=== PATIENT | female | born 1945 | race Hispanic/Latino ===

== ENCOUNTER 2021-08-12 13:23 | Emergency (ER) | payer MEDICARE ==
[2021-08-12 13:41] LABS: #Basophils 0.1 thou/uL (0.0-0.2); #Eosinphils 0.3 thou/uL (0.0-0.7); #Lymphocytes 2.5 thou/uL (1.20-3.40); #Monocytes 0.8 thou/uL (0.11-0.59); #Neutrophils 8.1 thou/uL (1.40-6.50); %Basophils 0.5 % (0.0-1.0); %Eosinophils 2.3 % (0.0-10.0); %Lymphocytes 21.4 % (21.0-51.0); %Monocytes 6.6 % (0.0-10.0); %Neutrophils 69.2 % (42.0-75.0); Hemoglobin 11.3 g/dL (12.0-16.0); Mean Corpuscular HGB CONC 31.7 g/dL (32.0-36.0); Mean Corpuscular Hemoglobin 26.9 pg (27.0-31.0); Mean Corpuscular Volume 84.9 fL (78.0-98.0); Mean Platelet Volume 7.3 fL (7.4-10.4); Platelet Count 378 thou/uL (130-400); RBC Distribution Width 14.9 % (11.5-14.5); Red Blood Cell (RBC) Count 4.19 mill/uL (4.20-5.40); White Blood Cell (WBC) Count 11.6 thou/uL (4.8-10.8)
[2021-08-12] MEDS ORDERED: Aspirin Chewable 81 MG TAB ONE (13:45)
[2021-08-12] MEDS ORDERED: Sodium Chloride 0.9% 1,000 ML ONE (13:53)
[2021-08-12 14:17] LABS: ALT (SGPT) 36 U/L (8-55); AST (SGOT) 43 U/L (5-34); Albumin 4.2 g/dL (3.4-4.8); Alkaline Phosphatase 67 U/L (40-110); Anion Gap 16 mmol/L (10-20); BUN (Urea Nitrogen) 26 mg/dL (9.8-20.1); Bilirubin, Total 0.2 mg/dL (0.2-1.2); Calc. Creatinine Clearance 0 mL/min (70-130); Calcium 9.2 mg/dL (7.8-10.44); Carbon Dioxide 20 mmol/L (23-31); Chloride 104 mmol/L (98-107); Globulin 4.1 g/dL (2.4-3.5); Glucose 175 mg/dL (83-110); Lipase 47 U/L (8-78); Magnesium 1.9 mg/dL (1.6-2.6); Potassium 5.1 mmol/L (3.5-5.1); Protein, Total 8.3 g/dL (5.8-8.1); Sodium 135 mmol/L (136-145)
[2021-08-12 14:35] LABS: SARS-CoV-2 NAA Rapid Test Not Detected (NotDetected)
== END 2021-08-12 14:28 | disposition short-term general hospital (02) ==
LOC: NAV ERS 13:23
DX: R00.1 Bradycardia, unspecified (principal); R42 Dizziness and giddiness; E78.5 Hyperlipidemia, unspecified; E11.9 Type 2 diabetes mellitus without complications; I11.0 Hypertensive heart disease with heart failure; I50.9 Heart failure, unspecified; Z20.822 Contact with and (suspected) exposure to COVID-19
CPT/HCPCS: 36416; 71045; 80053; 83690; 83735; 83880; 84484; 85025; 93005; J7050; U0002

== ENCOUNTER 2022-02-22 12:37 | Outpatient (CLI) | payer OTHER | END 2022-02-22 12:38 | disposition home or self-care (01) | LOC: NAV RAD 12:37 | PROVIDERS: ATTEND Nurse Practitioner Family | DX: M25.511 Pain in right shoulder (principal) ==

== ENCOUNTER 2022-10-18 11:59 | Outpatient (CLI) | payer MEDICARE | END 2022-10-18 12:00 | disposition home or self-care (01) | LOC: NAV RAD 11:59 | PROVIDERS: ATTEND Nurse Practitioner Family | DX: M17.11 Unilateral primary osteoarthritis, right knee (principal) ==

== ENCOUNTER 2022-10-25 16:46 | Emergency (ER) | payer MEDICARE ==
[2022-10-25] MEDS ORDERED: Ketorolac Tromethamine 30 MG/ML VIAL ONE (17:04)
== END 2022-10-25 18:00 | disposition short-term general hospital (02) ==
LOC: NAV ERS 16:46
DX: M25.562 Pain in left knee (principal); E11.9 Type 2 diabetes mellitus without complications; I10 Essential (primary) hypertension; E78.5 Hyperlipidemia, unspecified; Z79.899 Other long term (current) drug therapy; Z79.84 Long term (current) use of oral hypoglycemic drugs
CPT/HCPCS: 96372; J1885

== ENCOUNTER 2023-07-24 11:28 | Outpatient (CLI) | payer MEDICARE | END 2023-07-24 11:29 | disposition home or self-care (01) | LOC: NAV RAD 11:28 | PROVIDERS: ATTEND Nurse Practitioner Family | DX: M47.24 Other spondylosis with radiculopathy, thoracic region (principal); M43.16 Spondylolisthesis, lumbar region; M47.816 Spondylosis without myelopathy or radiculopathy, lumbar region; M47.817 Spondylosis without myelopathy or radiculopathy, lumbosacral region; Z96.641 Presence of right artificial hip joint | CPT/HCPCS: 72072; 72100 ==

== ENCOUNTER 2024-06-21 10:20 | Inpatient (IN) | payer MEDICARE ==
[2024-06-21] MEDS ORDERED: Ondansetron ODT 4 MG TAB PO PRN (12:56)
[2024-06-21] MEDS ORDERED: Glucagon 1 MG/ML KIT IM PRN (13:07)
[2024-06-21] MEDS ORDERED: Dextrose 50% Abboject 50 ML SYRINGE SLOW IVP PRN (13:07)
[2024-06-21] MEDS ORDERED: Carvedilol 3.125 MG TAB PO SCH (17:00)
[2024-06-21] MEDS ORDERED: Insulin Lispro 100 UNIT/ML 10 ML VIAL SC PRN ×2 (18:50→18:53)
[2024-06-21] MEDS: Sodium Chloride 1 GM TAB PO SCH (19:54)
[2024-06-21] MEDS: Carvedilol 3.125 MG TAB PO SCH (19:55)
[2024-06-21] MEDS: Pregabalin 50 MG CAP PO SCH (21:33)
[2024-06-21] MEDS: Melatonin 3 MG TAB PO SCH (21:34)
[2024-06-21] MEDS: Verapamil 80 MG TAB PO SCH (21:34)
[2024-06-21] MEDS: Nitrofurantoin Monohyd/M-Cryst 100 MG CAP PO SCH (21:35)
[2024-06-21] MEDS: Senokot S 8.6-50 MG TAB PO PRN (21:35)
[2024-06-21] MEDS: Famotidine 20 MG TAB PO SCH (21:36)
[2024-06-21] MEDS: TICAGRELOR 90 MG TABLET PO SCH (21:40)
[2024-06-22 05:55] LABS: Hematocrit 28.1 % (36.0-47.0); Hemoglobin 8.8 g/dL (12.0-16.0); Mean Corpuscular HGB CONC 31.5 g/dL (32.0-36.0); Mean Corpuscular Hemoglobin 26.8 pg (27.0-31.0); Mean Corpuscular Volume 85.3 fl (78.0-98.0); Mean Platelet Volume 6.4 fL (7.4-10.4); Platelet Count 433 10x3/uL (130-400); RBC Distribution Width 13.3 % (11.5-14.5); Red Blood Cell (RBC) Count 3.29 mill/uL (4.20-5.40); White Blood Cell (WBC) Count 3.8 10x3/uL (4.8-10.8)
[2024-06-22 06:01] LABS: Anion Gap 13 mmol/L (10-20); BUN (Urea Nitrogen) 21 mg/dL (9.8-20.1); Calc. Creatinine Clearance 59 mL/min (70-130); Calcium 9.7 mg/dL (7.8-10.44); Carbon Dioxide 22 mmol/L (23-31); Chloride 103 mmol/L (98-107); Estimated GFR 76; Glucose 114 mg/dL (83-110); Sodium 133 mmol/L (136-145)
[2024-06-22 06:18] LABS: Eosinophils 2 % (0-10); Lymphocytes 32 % (21-51); MDiff Complete? YES; Monocytes 15 % (0-10); Neutrophil 50 % (42-75); Platelet Adequacy Comment Appears Adequate
[2024-06-22] MEDS: Polyethylene Glycol 3350 17 GM Packet PO SCH (08:32)
[2024-06-22] MEDS: Lidocaine 4% Patch TD SCH (08:33)
[2024-06-22] MEDS: Cholecalciferol 1,000 UNITS (25 MCG) TAB PO SCH (08:38)
[2024-06-22] MEDS: Atorvastatin Calcium 40 MG TAB PO SCH (08:40)
[2024-06-22] MEDS: Saxagliptin 2.5 MG TAB PO SCH (08:40)
[2024-06-22] MEDS: metFORMIN 500 MG TAB PO SCH (08:40)
[2024-06-22] MEDS: Multivitamin W/ Minerals 1 TAB PO SCH (08:40)
[2024-06-22] MEDS: Valsartan 80 MG TAB PO SCH (08:40)
[2024-06-22] MEDS: Enoxaparin 40 MG (0.4 mL) SYRINGE SC SCH (08:42)
[2024-06-22] MEDS: Acetaminophen 325 MG TAB PO PRN (12:00)
[2024-06-22] MEDS: Pregabalin 50 MG CAP PO SCH (14:25)
[2024-06-22] MEDS: Transdermal Patch Removal TOP SCH (20:40)
[2024-06-23] MEDS: Methocarbamol 500 MG TAB PO PRN (08:15)
[2024-06-23] MEDS: Aspirin 81 mg Enteric Coated Tablet PO SCH (08:16)
[2024-06-23] MEDS: Methocarbamol 500 MG TAB PO SCH (14:04)
[2024-06-23] MEDS: Loperamide HCl 2 MG CAP PO PRN (16:00)
[2024-06-23] MEDS: rOPINIRole HCl 1 MG TAB PO SCH (20:51)
[2024-06-24 06:03] LABS: Anion Gap 13 mmol/L (10-20); BUN (Urea Nitrogen) 16 mg/dL (9.8-20.1); Calc. Creatinine Clearance 64 mL/min (70-130); Calcium 9.4 mg/dL (7.8-10.44); Carbon Dioxide 19 mmol/L (23-31); Chloride 106 mmol/L (98-107); Estimated GFR 84; Glucose 90 mg/dL (83-110); Potassium 4.5 mmol/L (3.5-5.1); Sodium 133 mmol/L (136-145)
[2024-06-24] MEDS: Losartan 25 MG TAB PO SCH (07:59)
[2024-06-27 06:08] LABS: Anion Gap 12 mmol/L (10-20); BUN (Urea Nitrogen) 16 mg/dL (9.8-20.1); Calc. Creatinine Clearance 65 mL/min (70-130); Calcium 9.5 mg/dL (7.8-10.44); Carbon Dioxide 22 mmol/L (23-31); Chloride 106 mmol/L (98-107); Estimated GFR 84; Glucose 86 mg/dL (83-110); Potassium 4.1 mmol/L (3.5-5.1); Sodium 136 mmol/L (136-145)
[2024-06-27 06:22] LABS: #Basophils 0.1 thou/uL (0.0-0.2); #Eosinophils 0.1 thou/uL (0.0-0.7); #Lymphocytes 0.8 thou/uL (1.20-3.40); #Monocytes 0.9 thou/uL (0.11-0.59); #Neutrophils 2.8 thou/uL (1.40-6.50); %Eosinophils 2.3 % (0.0-10.0); %Lymphocytes 16.1 % (21.0-51.0); %Monocytes 19.3 % (0.0-10.0); %Neutrophils 59.3 % (42.0-75.0); Hemoglobin 8.8 g/dL (12.0-16.0); Mean Corpuscular HGB CONC 31.4 g/dL (32.0-36.0); Mean Corpuscular Hemoglobin 26.9 pg (27.0-31.0); Mean Corpuscular Volume 85.4 fl (78.0-98.0); Mean Platelet Volume 6.7 fL (7.4-10.4); Platelet Count 339 10x3/uL (130-400); RBC Distribution Width 13.9 % (11.5-14.5); Red Blood Cell (RBC) Count 3.28 mill/uL (4.20-5.40); White Blood Cell (WBC) Count 4.7 10x3/uL (4.8-10.8)
[2024-06-27] MEDS: Acetaminophen 325 MG TAB PO PRN (06:45)
[2024-06-27] MEDS: buPROPion 75 MG TAB PO SCH (07:50)
[2024-06-27 17:13] LABS: Iron 47 ug/dL (50-170); Iron Binding Capacity, Total 260 mcg/dL (265-497)
[2024-06-28] MEDS: Ferrous Sulfate 325 MG TAB PO SCH (09:24)
[2024-06-28] MEDS: Ascorbic Acid 500 mg Chewable Tablet PO SCH (09:24)
[2024-06-29] MEDS: Sodium Chloride 0.65% Nasal 44 ML BOT EA NARE PRN (14:46)
[2024-06-29] MEDS: Calcium Carbonate 500 MG ChewTAB PO PRN (18:28)
[2024-06-30] MEDS: Carvedilol 3.125 MG TAB PO SCH (09:36)
[2024-06-30] MEDS: Carvedilol 6.25 MG TAB PO SCH (16:50)
[2024-06-30] MEDS: cloNIDine 0.1 MG TAB PO SCH (17:57)
[2024-07-01 04:12] VITALS: BMI 27.8
[2024-07-01] MEDS: cloNIDine 0.1 MG TAB PO SCH (09:21)
[2024-07-01 12:24] VITALS: BMI 27.8
[2024-07-03 05:41] LABS: #Eosinophils 0.3 thou/uL (0.0-0.7); #Lymphocytes 1.3 thou/uL (1.20-3.40); #Monocytes 0.8 thou/uL (0.11-0.59); #Neutrophils 4.9 thou/uL (1.40-6.50); %Basophils 0.6 % (0.0-1.0); %Eosinophils 3.5 % (0.0-10.0); %Lymphocytes 17.7 % (21.0-51.0); %Neutrophils 67.2 % (42.0-75.0); Hematocrit 28.5 % (36.0-47.0); Mean Corpuscular HGB CONC 31.5 g/dL (32.0-36.0); Mean Corpuscular Hemoglobin 27.1 pg (27.0-31.0); Mean Corpuscular Volume 86.2 fl (78.0-98.0); Mean Platelet Volume 7.1 fL (7.4-10.4); Platelet Count 399 10x3/uL (130-400); RBC Distribution Width 13.9 % (11.5-14.5); White Blood Cell (WBC) Count 7.3 10x3/uL (4.8-10.8)
[2024-07-03 05:53] LABS: ALT (SGPT) 29 U/L (8-55); AST (SGOT) 26 U/L (5-34); Albumin 3.5 g/dL (3.4-4.8); Alkaline Phosphatase 79 U/L (40-110); Anion Gap 14 mmol/L (10-20); BUN (Urea Nitrogen) 15 mg/dL (9.8-20.1); Bilirubin, Total 0.3 mg/dL (0.2-1.2); Calc. Creatinine Clearance 59 mL/min (70-130); Calcium 9.8 mg/dL (7.8-10.44); Carbon Dioxide 23 mmol/L (23-31); Chloride 104 mmol/L (98-107); Estimated GFR 76; Globulin 4.2 g/dL (2.4-3.5); Glucose 100 mg/dL (83-110); Potassium 4.3 mmol/L (3.5-5.1); Protein, Total 7.7 g/dL (5.8-8.1); Sodium 137 mmol/L (136-145)
[2024-07-03] MEDS: Bupropion 150 MG SR.TAB PO SCH (08:09)
[2024-07-03] MEDS: Polyethylene Glycol 3350 17 GM Packet PO PRN (14:37)
[2024-07-04 08:08] VITALS: BP 176/64; TEMP 98.6
== END 2024-07-04 11:30 | disposition home or self-care (01) | DRG 948 ==
LOC: NAV ACUTE 18:47
PROVIDERS: ADMIT Student in an Organized Health Care Education/Training Program; ATTEND Student in an Organized Health Care Education/Training Program
DX: R53.81 Other malaise (principal); N39.0 Urinary tract infection, site not specified; E22.2 Syndrome of inappropriate secretion of antidiuretic hormone; I50.32 Chronic diastolic (congestive) heart failure; F03.93 Unspecified dementia, unspecified severity, with mood disturbance; E78.5 Hyperlipidemia, unspecified; I25.10 Atherosclerotic heart disease of native coronary artery without angina pectoris; F03.90 Unspecified dementia, unspecified severity, without behavioral disturbance, psychotic disturbance, mood disturbance, and anxiety; I11.0 Hypertensive heart disease with heart failure; M47.26 Other spondylosis with radiculopathy, lumbar region; G25.81 Restless legs syndrome; E55.9 Vitamin D deficiency, unspecified; Z79.84 Long term (current) use of oral hypoglycemic drugs; Z79.899 Other long term (current) drug therapy; Z79.82 Long term (current) use of aspirin; F32.9 Major depressive disorder, single episode, unspecified; D50.9 Iron deficiency anemia, unspecified
CPT/HCPCS: 36415; 36416; 71045; 80048; 80053; 82728; 83540; 83550; 85025; J1650; J1815

== ENCOUNTER 2025-06-18 10:30 | Outpatient (CLI) | payer MEDICARE | END 2025-06-18 10:31 | disposition home or self-care (01) | LOC: NAV RAD 10:30 | PROVIDERS: ATTEND Family Medicine | DX: M25.532 Pain in left wrist (principal); M19.032 Primary osteoarthritis, left wrist; M79.89 Other specified soft tissue disorders ==